=== PATIENT | female | born 1990 | race African-American/Black ===

== ENCOUNTER 2017-01-23 19:00 | Emergency (ER) | payer OTHER ==
[~2017-01-23] VITALS: Ht 170.2 cm; Wt 122.5 kg
[~2017-01-23 19:00] MED LIST: PNV1TABL25 PO
[2017-01-23 19:13] VITALS: BP 144/72
[2017-01-23] MEDS ORDERED: IPRATRPIUM/ALBUTEROL 0.5/2.5MG 3 ML NEBU. NEB ONE (19:15)
--- NOTE | 2017-01-23 19:17 | PHYS DOC ---
Past Medical History Past Medical History: No Pertinent History Past Surgical History: No Surgical History Alcohol Use: None Drug Use: None Adult General Chief Complaint Chief Complaint: COUGH HPI HPI Patient is a 26 year old [female presents to the emergency department a 2 day history of shortness of breath. Patient states that she has a history of asthma and is out of her albuterol at home. Patient reports that her symptoms for similar to her asthma. States she has a productive cough with deep breath. She has no chest pain. Patient is 36 weeks gestation without related complaints at this time Review of Systems Review of Systems Constitutional: Denies fever or chills [] Eyes: Denies change in visual acuity, redness, or eye pain [] HENT: Denies nasal congestion or sore throat [] Respiratory: Cough and shortness of breath Cardiovascular: No additional information not addressed in HPI [] GI: Denies abdominal pain, nausea, vomiting, bloody stools or diarrhea [] : Denies dysuria or hematuria [] Musculoskeletal: Denies back pain or joint pain [] Integument: Denies rash or skin lesions [] Neurologic: Denies headache, focal weakness or sensory changes [] Endocrine: Denies polyuria or polydipsia [] Current Medications Current Medications Current Medications Medications (Trade) Dose Ordered Sig/Heraclio Start Time Stop Time Status Last Admin Dose Admin Albuterol/ Ipratropium (Duoneb) 3 ml 1X ONCE 01/23/17 19:15 01/23/17 19:16 DC 01/23/17 19:33 3 ML Allergies Allergies Allergies Coded Allergies Type Severity Reaction Last Updated Verified No Known Drug Allergies 11/01/14 No Physical Exam Physical Exam Constitutional: Well developed, well nourished, no acute distress, non-toxic appearance. [] HENT: Normocephalic, atraumatic, bilateral external ears normal, oropharynx moist, no oral exudates, nose normal. [] Eyes: PERRLA, EOMI, conjunctiva normal, no discharge. [] Neck: Normal range of motion, no tenderness, supple, no stridor. [] Cardiovascular:Heart rate regular rhythm, no murmur [] Lungs & Thorax: Breath sounds diminished throughout Skin: Warm, dry, no erythema, no rash. [] Back: No tenderness, no CVA tenderness. [] Extremities: No tenderness, no cyanosis, no clubbing, ROM intact, no edema. [] Neurologic: Alert and oriented X 3, normal motor function, normal sensory function, no focal deficits noted. [] Current Patient Data Vital Signs Vital Signs Date Time Temp Pulse Resp B/P (MAP) Pulse Ox O2 Delivery O2 Flow Rate FiO2 01/23/17 19:33 Room Air 01/23/17 19:13 98.0 122 22 96 98.0 EKG EKG [] Radiology/Procedures Radiology/Procedures [] Course & Med Decision Making Course & Med Decision Making Pertinent Labs and Imaging studies reviewed. (See chart for details Reevaluation: Post-DuoNeb treatment, patient's lungs are clear auscultate throughout. She has no complaints. I spoke with the patient and/or care givers. I've explained the patient's condition, diagnosis and treatment plan based on the information available to me at this time. I've answered the patient's and/or care givers questions and a dressing concerns. The patient and/or care givers have as good an understanding of the patient's diagnosis, condition and treatment plan as can be expected at this time. Vital signs stable. The patient's condition is stable and appropriate for discharge from the emergency department. The patient will pursue further outpatient evaluation with the primary care physician or other designated or consulting physician as outlined in the discharge instructions. The patient and/or care givers are agreeable to this plan of care and follow-up instructions and explained in detail. The patient and /or care givers have received these instructions in written format and have expressed an understanding of the discharge instructions. The patient and/or caregivers are aware that any significant change in condition or worsening of symptoms should prompt immediate return to this closest emergency department or call to 911. [place] Disclaimer Dragon Disclaimer This electronic medical record was generated, in whole or in part, using a voice recognition dictation system. Departure Departure Impression: Primary Impression: Asthma exacerbation Disposition: HOME, SELF-CARE Condition: STABLE Referrals: CALEB CRAFT MD (PCP) Patient Instructions: Asthma, Adult Scripts Albuterol Sulfate (PROAIR HFA INHALER) 8.5 Gm Hfa.aer.ad 1 PUFF INH PRN Q6HRS Y for SHORTNESS OF BREATH, #1 INHALER 0 Refills Prov: MUSTAPHA HENNING COIL WINDER 01/23/17 MUSTAPHA HENNING APRN Jan 23, 2017 19:17
[2017-01-23] MEDS ORDERED: PROAIR HFA8.5 GM INH (19:43)
== END 2017-01-23 19:46 | disposition home or self-care (01) ==
LOC: ER 19:00
DX: O99.513 Diseases of the respiratory system complicating pregnancy, third trimester (principal); J45.901 Unspecified asthma with (acute) exacerbation; Z3A.36 36 weeks gestation of pregnancy
CPT/HCPCS: 94250; 94640; 99283; J7620

== ENCOUNTER 2017-12-30 06:40 | Emergency (ER) | payer SELFPAY, OTHER ==
[2017-12-30] MEDS: ALBUTEROL SULFATE 2.5 MG/3 ML NEBU. CONT NEB (07:16)
[2017-12-30] MEDS: IPRATROPIUM BROMIDE 0.5 MG/2.5 ML NEBU. NEB (07:16)
[2017-12-30] MEDS: predniSONE 20 MG TABLET PO (07:18)
== END 2017-12-30 08:58 | disposition home or self-care (01) ==
LOC: ER 06:40
DX: R06.02 Shortness of breath (principal); R06.2 Wheezing; R07.89 Other chest pain; J45.909 Unspecified asthma, uncomplicated; R09.81 Nasal congestion; Z98.890 Other specified postprocedural states
CPT/HCPCS: 94644; 99285; J7512; J7613; J7644

== ENCOUNTER 2018-03-19 15:24 | Emergency (ER) | payer SELFPAY ==
[~2018-03-19] VITALS: Ht 170.2 cm; Wt 104.3 kg
[~2018-03-19 15:24] MED LIST changes: +PRED50TA PO; +PROAIR HFA8.5 GM INH; +PROVENTIL HFA6.7 G1 IH
[2018-03-19 15:40] VITALS: BP 158/77
--- NOTE | 2018-03-19 17:07 | RAD ---
Left tibia and fibula, 2 views, 03/19/2018: HISTORY: Injury No fracture or bony abnormality is detected. IMPRESSION: No significant abnormality is identified. Left ankle, 3 views, 03/19/2018: No fracture or dislocation is identified. There is mild diffuse soft tissue swelling about the ankle. IMPRESSION: No acute bony abnormality is detected. Electronically signed by: Clayton Wilkerson MD (03/19/2018 5:04 PM) [facility]
--- NOTE | 2018-03-19 17:07 | RAD ---
Left tibia and fibula, 2 views, 03/19/2018: HISTORY: Injury No fracture or bony abnormality is detected. IMPRESSION: No significant abnormality is identified. Left ankle, 3 views, 03/19/2018: No fracture or dislocation is identified. There is mild diffuse soft tissue swelling about the ankle. IMPRESSION: No acute bony abnormality is detected. Electronically signed by: Clayton Wilkerson MD (03/19/2018 5:04 PM) [facility]
--- NOTE | 2018-03-19 17:41 | PHYS DOC ---
Past Medical History Past Medical History: Asthma Past Surgical History: Alcohol Use: Occasionally Drug Use: None Adult General Chief Complaint Chief Complaint: ANKLE PROBLEM HPI HPI Patient is a 27 year old female who presents with left ankle pain after she rolled her ankle getting out of a parked truck at work today. The patient works for waste management and states that if she stepped down it gave way. She is unable to bear weight on that extremity. Rest relieves the pain. Review of Systems Review of Systems Constitutional: Denies fever or chills [] Respiratory: Denies cough or shortness of breath [] Cardiovascular: No additional information not addressed in HPI [] GI: Denies abdominal pain, nausea, vomiting, bloody stools or diarrhea [] : Denies dysuria or hematuria [] Musculoskeletal: See history of present illness Integument: Denies rash or skin lesions [] Neurologic: Denies headache, focal weakness or sensory changes [] Endocrine: Denies polyuria or polydipsia [] All other systems were reviewed and found to be within normal limits, except as documented in this note. Allergies Allergies Allergies Coded Allergies Type Severity Reaction Last Updated Verified No Known Drug Allergies 11/01/14 No Physical Exam Physical Exam Constitutional: Well developed, well nourished, no acute distress, non-toxic appearance. [] Cardiovascular:Heart rate regular rhythm, no murmur [] Lungs & Thorax: Bilateral breath sounds clear to auscultation [] Abdomen: Bowel sounds normal, soft, no tenderness, no masses, no pulsatile masses. [] Skin: Warm, dry, no erythema, no rash. [] Back: No tenderness, no CVA tenderness. [] Extremities: Left ankle tenderness with edema to the lateral malleolus, mild ecchymosis noted, no cyanosis, no clubbing, ROM decreased due to pain Neurologic: Alert and oriented X 3, normal motor function, normal sensory function, no focal deficits noted. [] Psychologic: Affect normal, judgement normal, mood normal. [] Current Patient Data Vital Signs Vital Signs Date Time Temp Pulse Resp B/P (MAP) Pulse Ox O2 Delivery O2 Flow Rate FiO2 03/19/18 15:40 98.5 99 16 158/77 (104) 100 Room Air 98.5 EKG EKG [] Radiology/Procedures Radiology/Procedures []PATIENT: ARVIND ALMAZAN LACCOUNT: [id number]#: [id number] : 1990 LOCATION: ER AGE: 27 SEX: F EXAM STATUS: REG ER ORD. PHYSICIAN: ESTEFANY TEJEDA APRN REASON: twisted getting out of truck at work, cannot bear weight PROCEDURE: TIBIA FIBULA LEFT Left tibia and fibula, 2 views, 03/19/2018: HISTORY: Injury No fracture or bony abnormality is detected. IMPRESSION: No significant abnormality is identified. Left ankle, 3 views, 03/19/2018: No fracture or dislocation is identified. There is mild diffuse soft tissue swelling about the ankle. IMPRESSION: No acute bony abnormality is detected. Electronically signed by: Clayton Wilkerson MD (03/19/2018 5:04 PM) [facility] DICTATED and SIGNED BY: CLAYTON WILKERSON MD DATE: 03/19/18 170 Course & Med Decision Making Course & Med Decision Making Pertinent Labs and Imaging studies reviewed. (See chart for details) []The patient was placed in an Omar wrap for comfort. Dragon Disclaimer Dragon Disclaimer This electronic medical record was generated, in whole or in part, using a voice recognition dictation system. Departure Departure Impression: Primary Impression: Ankle sprain Disposition: 01 HOME, SELF-CARE Condition: STABLE Referrals: NO PCP (PCP) Patient Instructions: Ankle Sprain, Elastic Bandage and RICE Additional Instructions: You may take ibuprofen or Tylenol for pain. Follow-up with your primary care provider for possible referral to orthopedics if not improving in 3 days. RICE the extremity. ESTEFANY TEJEDA APRN Mar 19, 2018 17:40
== END 2018-03-19 18:04 | disposition home or self-care (01) ==
LOC: ER 15:24
DX: S93.492A Sprain of other ligament of left ankle, initial encounter (principal); J45.909 Unspecified asthma, uncomplicated; Z98.890 Other specified postprocedural states; X50.1XXA Overexertion from prolonged static or awkward postures, initial encounter; Y93.89 Activity, other specified; Y92.89 Other specified places as the place of occurrence of the external cause; Y99.0 Civilian activity done for income or pay
CPT/HCPCS: 73590; 73610; 99284